=== PATIENT | female | born 1955 | race Caucasian/White ===

== ENCOUNTER → 2017-08-17 | Emergency (ER) | payer OTHER ==
[~2017-08-17] VITALS: Ht 160 cm; Wt 107.0 kg
[~2017-08-17] MED LIST: AMLODIPINE BESY10 MG; GABAPENTIN800 MG; HYDRALAZINE HCL25 MG; HYDROXYZINE PAM25 MG; LASIX20 MG; METOPROLOL SUC100 MG; NOVOLOG100 UNIT/1; TRAMADOL HCL50 MG
== END | disposition home or self-care (01) ==
LOC: ER 18:53
DX: L03.116 Cellulitis of left lower limb (principal); L03.115 Cellulitis of right lower limb

== ENCOUNTER 2018-01-13 19:50 | Emergency (ER) | payer OTHER ==
[~2018-01-13] VITALS: Ht 162.6 cm; Wt 105.2 kg
[2018-01-14] MEDS ORDERED: BUDESONIDE0.5 MG/2 M IH (00:25)
[2018-01-14] MEDS ORDERED: MUCINEX DM ER1 EAC1 PO (00:25)
[2018-01-14] MEDS ORDERED: ZITHROMAX500 MG PO (00:25)
[2018-01-14] MEDS ORDERED: LEVALBUTER1.25 MG/3 IH (00:25)
== END 2018-01-14 01:29 | disposition home or self-care (01) ==
LOC: ER 19:50
DX: J20.9 Acute bronchitis, unspecified (principal)

== ENCOUNTER 2018-05-27 15:49 | Inpatient (IN) | payer OTHER ==
[~2018-05-27] VITALS: Ht 160 cm; Wt 115.2 kg
[~2018-05-27 15:49] MED LIST changes: +BUDESONIDE0.5 MG/2 M IH; +LEVALBUTER1.25 MG/3 IH; +MUCINEX DM ER1 EAC1 PO; +ZITHROMAX500 MG PO
[2018-06-16] MEDS ORDERED: CLONIDINE HCL0.1 MG PO (12:22)
[2018-06-16] MEDS ORDERED: NIFEDIPINE ER30 MG PO (12:22)
[2018-06-16] MEDS ORDERED: TOPROL XL100 M1 PO (12:22)
[2018-06-16] MEDS ORDERED: GABAPENTIN800 MG PO (12:23)
[2018-06-16] MEDS ORDERED: POLY119PG PO (12:24)
[2018-06-16] MEDS ORDERED: PANTOPRAZOLE SO40 MG PO (12:24)
[2018-06-16] MEDS ORDERED: FAMOTIDINE20 MG PO (12:24)
[2018-06-16] MEDS ORDERED: PRE PROTEIN 2030 ML PO (12:25)
[2018-06-16] MEDS ORDERED: CARdura 2MG TABLET PO (12:28)
[2018-06-16] MEDS ORDERED: TRAMADOL HCL50 MG PO (12:28)
== END 2018-06-16 19:39 | disposition home or self-care (01) | DRG 291 ==
LOC: ER 15:49 → MEDJ 05-28 00:55 → SURH 05-28 00:55 → MEDJ 05-31 18:16
PROVIDERS: Radiology Vascular & Interventional Radiology; ADMIT Internal Medicine
PROC: BW24ZZZ Computerized Tomography (CT Scan) of Chest and Abdomen (ICD-10-PCS; 2018-05-28)
PROC: 02HV33Z Insertion of Infusion Device into Superior Vena Cava, Percutaneous Approach (ICD-10-PCS; 2018-05-28)
PROC: 4A033R1 Measurement of Arterial Saturation, Peripheral, Percutaneous Approach (ICD-10-PCS; 2018-05-28)
PROC: 0T9B70Z Drainage of Bladder with Drainage Device, Via Natural or Artificial Opening (ICD-10-PCS; 2018-05-28)
PROC: 30233N1 Transfusion of Nonautologous Red Blood Cells into Peripheral Vein, Percutaneous Approach (ICD-10-PCS; 2018-05-29)
PROC: 4A12X4Z Monitoring of Cardiac Electrical Activity, External Approach (ICD-10-PCS; 2018-05-29)
PROC: B246ZZZ Ultrasonography of Right and Left Heart (ICD-10-PCS; 2018-05-30)
PROC: B513YZA Fluoroscopy of Right Jugular Veins using Other Contrast, Guidance (ICD-10-PCS; 2018-06-01)
PROC: 05HM33Z Insertion of Infusion Device into Right Internal Jugular Vein, Percutaneous Approach (ICD-10-PCS; principal; 2018-06-01 21:15)
PROC: 5A1D70Z Performance of Urinary Filtration, Intermittent, Less than 6 Hours Per Day (ICD-10-PCS; 2018-06-02)
PROC: 5A1D70Z Performance of Urinary Filtration, Intermittent, Less than 6 Hours Per Day (ICD-10-PCS; 2018-06-03)
PROC: 5A1D70Z Performance of Urinary Filtration, Intermittent, Less than 6 Hours Per Day (ICD-10-PCS; 2018-06-05)
PROC: 5A1D70Z Performance of Urinary Filtration, Intermittent, Less than 6 Hours Per Day (ICD-10-PCS; 2018-06-07)
PROC: 30233R1 Transfusion of Nonautologous Platelets into Peripheral Vein, Percutaneous Approach (ICD-10-PCS; 2018-06-07)
PROC: 5A1D70Z Performance of Urinary Filtration, Intermittent, Less than 6 Hours Per Day (ICD-10-PCS; 2018-06-09)
PROC: 5A1D70Z Performance of Urinary Filtration, Intermittent, Less than 6 Hours Per Day (ICD-10-PCS; 2018-06-12)
PROC: 5A1D70Z Performance of Urinary Filtration, Intermittent, Less than 6 Hours Per Day (ICD-10-PCS; 2018-06-13)
DX: I13.2 Hypertensive heart and chronic kidney disease with heart failure and with stage 5 chronic kidney disease, or end stage renal disease (principal); N18.6 End stage renal disease; I50.31 Acute diastolic (congestive) heart failure; I50.33 Acute on chronic diastolic (congestive) heart failure; J90 Pleural effusion, not elsewhere classified; E87.1 Hypo-osmolality and hyponatremia; E87.2 Acidosis; I82.493 Acute embolism and thrombosis of other specified deep vein of lower extremity, bilateral; N17.9 Acute kidney failure, unspecified; N04.9 Nephrotic syndrome with unspecified morphologic changes; E11.21 Type 2 diabetes mellitus with diabetic nephropathy; D63.1 Anemia in chronic kidney disease; D69.59 Other secondary thrombocytopenia; Z79.4 Long term (current) use of insulin; E11.40 Type 2 diabetes mellitus with diabetic neuropathy, unspecified; E87.5 Hyperkalemia; E66.01 Morbid (severe) obesity due to excess calories; R60.0 Localized edema; E11.42 Type 2 diabetes mellitus with diabetic polyneuropathy; I11.0 Hypertensive heart disease with heart failure; E11.22 Type 2 diabetes mellitus with diabetic chronic kidney disease; E11.65 Type 2 diabetes mellitus with hyperglycemia; G47.33 Obstructive sleep apnea (adult) (pediatric); R80.1 Persistent proteinuria, unspecified; I16.0 Hypertensive urgency; Z99.2 Dependence on renal dialysis

== ENCOUNTER 2018-08-21 17:09 | Emergency (ER) | payer OTHER ==
[~2018-08-21] VITALS: Ht 160 cm; Wt 100.2 kg
[~2018-08-21 17:09] MED LIST changes: +CARdura 2MG TABLET PO; +CLONIDINE HCL0.1 MG PO; +FAMOTIDINE20 MG PO; +GABAPENTIN800 MG PO; +NIFEDIPINE ER30 MG PO; +PANTOPRAZOLE SO40 MG PO; +POLY119PG PO; +PRE PROTEIN 2030 ML PO; +TOPROL XL100 M1 PO; +TRAMADOL HCL50 MG PO
[2018-08-21] MEDS ORDERED: LANTUS SOL100 UNIT/1 (17:37)
[2018-08-21] MEDS ORDERED: HUMALOG100 UNIT/1 (17:37)
== END 2018-08-21 22:27 | disposition home or self-care (01) ==
LOC: ER 17:09
DX: N39.0 Urinary tract infection, site not specified (principal)